=== PATIENT | female | born 1965 | race Caucasian/White ===

== ENCOUNTER 2016-10-06 16:42 | Emergency (ER) | payer OTHER ==
[2016-10-06 17:07] VITALS: O2SAT 98
[2016-10-06] MEDS ORDERED: LORAZEPAM 2 MG/ML SOL IM ONE (17:20)
[2016-10-06] MEDS ORDERED: LORAZEPAM 2 MG/ML SOL ONE (17:21)
[2016-10-06 17:57] LABS: ALBUMIN 1.9 gm/dl (3.4-5.0); CALCIUM 7.5 mg/dl (8.5-10.1); HEMATOCRIT 35 % (35-47); MEAN CORPUSCULAR HGB CONC 34.2 gm/dl (32.0-36.0); MEAN CORPUSCULAR VOLUME 95 fL (81-99); POTASSIUM 4.3 mMol/L (3.5-5.1)
[2016-10-06] MEDS ORDERED: APAP/HYDROCODONE 325/5 TAB PO ONE (18:03)
[2016-10-06 18:15] LABS: BASOPHILS % (MANUAL) 0 % (0-3); EOSINOPHILS % (MANUAL) 2 % (0-9); LYMPHOCYTES % (MANUAL) 24 % (10-50); NORMAL RBCS PRESENT
[2016-10-06 18:30] VITALS: BP 153/80; PULSE 67; RESP 24; TEMP 98
[2016-10-06] MEDS ORDERED: ENOXAPARIN 80 MG SOL SC SCH (19:15)
[2016-10-06] MEDS ORDERED: ENOXAPARIN 80 MG SOL SC ONE (19:27)
== END 2016-10-06 20:00 | disposition home or self-care (01) | DRG 204 ==
LOC: ED 16:42
DX: R06.00 Dyspnea, unspecified (principal); R10.11 Right upper quadrant pain
CPT/HCPCS: 36415; 80053; 85007; 85027; 85378; 96372; 99283; 99284; J1650; J2060

== ENCOUNTER 2017-12-08 07:36 | Day surgery (SDC) | payer OTHER ==
[2017-12-08] MEDS ORDERED: PROPOFOL 500 MG/50 ML EMU IV ONE (08:11)
[2017-12-08] MEDS ORDERED: LIDOCAINE HCL 1% MPF SOL ONE (08:11)
[2017-12-08 09:33] VITALS: BP 126/71; PULSE 52; RESP 18; TEMP 97.6; O2SAT 99
== END 2017-12-08 09:55 | disposition home or self-care (01) | DRG 951 ==
LOC: SURG 07:36
PROVIDERS: ATTEND Surgery
DX: Z12.11 Encounter for screening for malignant neoplasm of colon (principal); K57.30 Diverticulosis of large intestine without perforation or abscess without bleeding; K62.1 Rectal polyp
CPT/HCPCS: 99001; J2001; J2704